=== PATIENT | female | born 1950 | race Caucasian/White ===

== ENCOUNTER → 2020-05-08 | Outpatient (CLI) | payer OTHER | LOC: M.RAD 10:28 | PROVIDERS: ATTEND Registered Nurse | DX: Z12.31 Encounter for screening mammogram for malignant neoplasm of breast (principal) ==

== ENCOUNTER → 2021-05-08 | Outpatient (CLI) | payer OTHER | LOC: M.RAD 10:00 | PROVIDERS: ATTEND Internal Medicine | DX: Z12.31 Encounter for screening mammogram for malignant neoplasm of breast (principal) ==